=== PATIENT | male | born 1985 | race Caucasian/White ===

== ENCOUNTER 2023-04-10 11:57 | Emergency (ER) | payer OTHER, SELFPAY ==
--- NOTE | ~2023-04-10 | XR_ITS ---
Left elbow Technique: AP, oblique, and lateral views were obtained. Clinical History: Pain Findings: No acute fracture or dislocation is seen. Osseous alignment is anatomic. Joint spaces are p reserved. There is no displacement of the fat pads, and no evidence of joint effusion. There is soft tissue swelling over the olecranon Impression: No fracture or dislocation. Olecranon bursitis. Reviewed, dictated and finalized at location . [employer] Impression: No fracture or dislocation. Olecranon bursitis.
[2023-04-10 12:08] VITALS: BP 146/86; PULSE 79; RESP 20; TEMP 36.7; O2SAT 95
--- NOTE | 2023-04-10 12:16 | ED.GENADULT ---
HPI - General Adult General Chief complaint: Extremity Problem,Nontraumatic Stated complaint: left Elbow swollen Time Seen by Provider: 04/10/23 12:16 Source: patient, RN notes reviewed and old records reviewed Mode of arrival: ambulatory Limitations: no limitations History of Present Illness HPI narrative: 38 year old male presents to [facility] care with noted swelling to his left elbow at olecranon process since last evening.Patient denies any injury to his left arm or to his elbow.Patient has palpable swelling noted with some warmth to area denies any acute pain to elbow with full mobility of his left arm and elbow noted. Patient has not taken any OTC medications or used any ice to elbow region. No lesions or any open skin areas noted to left elbow, complaint: swelling left elbow Onset (ago): day(s) (1) Location: left and upper extremity (elbow) Severity: moderate Associated symptoms: denies other symptoms Treatments prior to arrival: none Related Data Home Medications Medication Instructions Recorded Confirmed lisinopril 10 mg tablet 10 mg PO DAILY 04/10/23 04/10/23 Allergies Allergy/AdvReac Type Severity Reaction Status Date / Time No Known Allergies Allergy Verified 04/10/23 12:15 Review of Systems Review of Systems: CONSTITUTIONAL: Denies fever, chills, or sweats. EYES: Denies visual changes, redness, or discharge. ENT: Denies rhinorrhea, congestion, sore throat, or otalgia. CARDIOVASCULAR: Denies chest pain, palpitations, or edema. RESPIRATORY: Denies cough or dyspnea. GASTROINTESTINAL: Denies abdominal pain, nausea, vomiting, or diarrhea. GENITOURINARY: Denies dysuria or hematuria. SKIN: Denies rash or itching. MUSCULOSKELETAL: Denies back pain, joint pain, or myalgia.positive for swollen left elbow at olecranon process region. NEUROLOGIC: Denies headache, numbness, or weakness. PSYCHIATRIC: Denies anxiety or depression. All systems reviewed & are unremarkable except as noted in HPI and below [facility] Past Medical History Medical History (Updated 04/11/23 @ 10:10 by Sangeeta Ghotra NP) Hypertension Social History Social History (Updated 04/11/23 @ 10:11 by Sangeeta Ghotra NP) Smoking status: Current every day smoker Tobacco type: e-cigarettes/vaping Alcohol intake: current Alcohol use details: social Substance use type: does not use Living arrangements: with family Gender identity (if verbalized by the patient): Male Comments At time of signature, agree with nursing past medical, surgical, social and family history. There is no relevant family history pertinent to the presenting complaint Exam Narrative: GENERAL: Well-appearing, well-nourished, and in no acute distress. HEAD: Normocephalic, atraumatic. EYES: PERRLA and EOMI. ENT: Nares clear, no rhinorrhea or epistaxis. Mucous membranes moist. NECK: Supple. no lymphadenopathy CHEST: Clear to auscultation. No respiratory distress.SAO2 95% on room air HEART: Regular rate and rhythm. No murmur heard. Normal peripheral pulses. ABDOMEN: Soft, nontender, nondistended, normal active bowel sounds. EXTREMITIES: Normal range of motion. No edema.Exception noted to egg sized swelling at left olecranon process with some warmth to area, no redness or any lesions or any open skin areas, Patient reports no injury or acute pain to his left elbow, pulses strong left arm full mobility of left arm and elbow noted. NEURO: No focal deficits. Alert and oriented .x3. Course Course Emergency Course: Patient is aware of diagnosis, understands and agrees to treatment plan.? Anticipatory guidance given.? Patient agrees to follow-up as directed and is aware of reasons to seek care at the emergency department. Portions of this record may have been created with voice recognition software Level of Care: Express Care Visit Vital Signs Vital signs: Vital Signs Temperature 36.7 C 04/10/23 12:08 Pulse Rate 79 04/10/23 12:08 Respiratory
== END 2023-04-10 13:20 | disposition home or self-care (01) ==
PROVIDERS: Emergency Provider Registered Nurse
DX: M70.22 Olecranon bursitis, left elbow (principal); F17.290 Nicotine dependence, other tobacco product, uncomplicated; I10 Essential (primary) hypertension
CPT/HCPCS: 73080; 99213; G0463

== ENCOUNTER 2023-10-10 16:43 | Emergency (ER) | payer SELFPAY ==
[2023-10-10 16:51] VITALS: BP 141/88; PULSE 87; RESP 16; TEMP 36.6; O2SAT 96
--- NOTE | 2023-10-10 17:05 | ED.SKABFB ---
HPI - Skin/Abscess/Foreign Bdy General Chief complaint: Skin/Abscess/Foreign Body Stated complaint: Posion Remedios Time Seen by Provider: 10/10/23 17:05 Source: patient Mode of arrival: ambulatory Limitations: no limitations History of Present Illness HPI narrative: 38-year-old male presents with complaint of poison remedios to face, bilateral arms, chest and private area. Patient reports in the past he has needed steroid shot to help clear rash. All systems reviewed and negative except as noted above. Related Data Home Medications Medication Instructions Recorded Confirmed lisinopril 10 mg tablet 10 mg PO DAILY 04/10/23 10/10/23 Allergies Allergy/AdvReac Type Severity Reaction Status Date / Time No Known Allergies Allergy Verified 10/10/23 16:54 Review of Systems Review of Systems: CONSTITUTIONAL: Denies fever, chills, or sweats. EYES: Denies visual changes, redness, or discharge. ENT: Denies rhinorrhea, congestion, sore throat, or otalgia. CARDIOVASCULAR: Denies chest pain, palpitations, or edema. RESPIRATORY: Denies cough or dyspnea. GASTROINTESTINAL: Denies abdominal pain, nausea, vomiting, or diarrhea. GENITOURINARY: Denies dysuria or hematuria. SKIN: Reports poison remedios rash and itching. MUSCULOSKELETAL: Denies back pain, joint pain, or myalgia. NEUROLOGIC: Denies headache, numbness, or weakness. PSYCHIATRIC: Denies anxiety or depression. All other systems reviewed are negative, except as documented in HPI. PMFSH Past Medical History Medical History (Updated 10/10/23 @ 17:16 by Yady Guan NP) Hypertension Social History Social History (Updated 04/11/23 @ 10:11 by Sangeeta Ghotra NP) Smoking status: Current every day smoker Tobacco type: e-cigarettes/vaping Alcohol intake: current Alcohol use details: social Substance use type: does not use Living arrangements: with family Gender identity (if verbalized by the patient): Male Comments At time of signature, agree with nursing past medical, surgical, social and family history. There is no relevant family history pertinent to the presenting complaint. Exam Narrative: GENERAL: This is a well-nourished, well-developed patient, in no apparent distress. HEAD: normocephalic, atraumatic. EYES: PERRL. Sclera clear/white. Vision is grossly intact. EARS: External ears normal NOSE: External nose normal NECK: Neck supple, non-tender without lymphadenopathy, masses or thyromegaly. CARDIOVASCULAR: Regular rate and rhythm without murmurs, gallops, or rubs. RESPIRATORY: Clear to auscultation. Breath sounds equal bilaterally. No wheezes, rales, or rhonchi. SKIN: warm, Dry, intact, good texture and turgor. Erythematous fascicular rash to right side of forehead, right upper eyelid, right ear bilateral arms NEURO: awake, alert, and oriented to person, place and time. There were no obvious focal neurologic abnormalities. EXTREMITIES: No joint tenderness, effusion, or edema noted. Course Course Level of Care: Express Care Visit Vital Signs Vital signs: Vital Signs Temperature 36.6 C 10/10/23 16:51 Pulse Rate 87 10/10/23 16:51 Respiratory Rate 16 10/10/23 16:51 Blood Pressure 141/88 H 10/10/23 16:51 Pulse Oximetry 96 10/10/23 16:51 Oxygen Delivery Room Air 10/10/23 16:51 Temperature 36.6 C 10/10/23 16:51 Pulse Rate 87 10/10/23 16:51 Respiratory Rate 16 10/10/23 16:51 Blood Pressure 141/88 H 10/10/23 16:51 Pulse Oximetry 96 10/10/23 16:51 Oxygen Delivery Room Air 10/10/23 16:51 Reviewed MDM - Skin/Abscess/Foreign Bdy MDM Narrative Medical decision making narrative: Patient is aware of diagnosis, understands and agrees to treatment plan. Anticipatory guidance given. Patient agrees to follow-up as directed and is aware of reasons to seek care at the emergency department. Portions of this record may have been created with voice recognition software Differential Diagnosis Diffe
[2023-10-10] MEDS: TRIAMCINOLONE ACET INJ 40 MG/ML VIAL IM (17:17)
== END 2023-10-10 17:40 | disposition home or self-care (01) ==
PROVIDERS: Emergency Provider Nurse Practitioner Family
DX: L25.5 Unspecified contact dermatitis due to plants, except food (principal); F17.290 Nicotine dependence, other tobacco product, uncomplicated; I10 Essential (primary) hypertension
CPT/HCPCS: 96372; 99213; G0463; J3301